=== PATIENT | male | born 2005 | race Hispanic/Latino ===

== ENCOUNTER 2025-05-23 11:07 | Emergency (ER) | payer BC, MEDICAID ==
[~2025-05-23] VITALS: Ht 180.3 cm; Wt 140.6 kg
[2025-05-23 11:41] VITALS: BP 125/70; PULSE 90; RESP 16; TEMP 97.9; O2SAT 99
[2025-05-23] MEDS ORDERED: AMOX875T2 PO (11:44)
--- NOTE | 2025-05-23 11:45 | ERN ---
ED Note History of Present Illness Stated Complaint: RT EAR PAIN Chief Complaint: Earache Time Seen by MD: 11:08 Time Seen by Midlevel: 11:10 Dictation: 19 y/o male c/o right ear pain, thinks there is was in his ear. No fever, nausea, vomiting or diarrhea. Allergies: Coded Allergies: No Known Allergies (Unverified Allergy, Unknown, 05/23/25) Past Medical History Past Medical History: No Pertinent History Surgical History: Appendectomy Review of System Dictation Constitutional: Negative for fever,chills, and weight loss Eyes: Negative for injury, pain,redness, and discharge ENT: Right ear pain Cardiovascular: Negative for chest pain, palpitations, and edema Respiratory: Negative for shortness of breath, cough, and wheezing, Abdomen/GI: Negative for abdominal pain, nausea, vomiting, diarrhea, and constipation Back: Negative for injury and pain : Negative for injury, bleeding and discharge MS/Extremity: Negative for injury and deformity Skin: Negative for rash, and discoloration Neuro: Negative for headache, weakness, numbness, tingling, and seizure Psych: Negative for suicide ideation, homicidal ideation, and hallucinations Review of Systems: was completed Initial Vital Sign VS Vital Signs Date Time Temp Pulse Resp B/P (MAP) Pulse Ox O2 Delivery O2 Flow Rate FiO2 05/23/25 11:08 97.9 102 16 131/74 97 Room Air 0 Physical Exam Dictation General: awake, alert, NAD Head/Face: Normocephalic, atraumatic Eyes: PERRL, EOMI, vision at baseline ENT: oral cavity clear, impaction to the right ear, TMs intact after patch Neck: Trachea midline, supple, no nuchal rigidity Cardiovascular: RRR, normal S1/S2, No MRGs, no JVD Respiratory: CTAB, no respiratory distress, No rales or wheezes Abdomen: Soft, non-tender, non-distended, normal bowel sounds, no guarding or rebound. Skin: Warm, dry, normal turgor, no rash MS/Extremity: Pulses equal, no cyanosis, neurovascular intact, FROM Neuro: COAx4, GCS 15, strength 5/5, CN 2-12 intact, normal cerebellar exam, normal gait, Psych: Normal behavior, mood, and affect normal ED Course ED Course Orders Procedure Category Date Status Time *Nursing CPOE 05/23/25 Transmitted Communication: 11:13 Vital Signs Date Time Temp Pulse Resp B/P (MAP) Pulse Ox O2 Delivery O2 Flow Rate FiO2 05/23/25 11:08 97.9 102 16 131/74 97 Room Air 0 Medical Decision Making MDM MDM:19 y/o male c/o right ear pain, thinks there is was in his ear. No fever, nausea, vomiting or diarrhea. Right ear disimpact with warm water by primary nurse. Large amount of wax n oted. Discharged with the antibiotics for right otitis media. Educated to avoid using Q-tips and to follow up with the his primary care provider. Patient verbalized understanding, answered all questions. Differential diagnosis: Making it, otitis externa, cerumen impaction Rationale: Tests considered and ordered secondary to shared decision making include: Previous outside records reviewed: Old ER visits. Risk of complication and/or morbidity or mortality of patient management: None Medications-Per medication reconciliation Need for hospitalization: Patient does not meet criteria for hospitalization. Need for emergency major/minor surgery: No There are no social concerns with this patient. Prescription drug management Prescriptions will include symptomatic care Patient's prior external medical records from other ER visits were reviewed by me as indicated. Prior testing and results from previous visits were reviewed. Prior tests were taken into account with medical decision making and resource utilization, independent historian/historians were used to obtain complete medical history. I independently interpreted the test that were performed, results were reviewed by me and considered findings on radiology if ordered. Medical management and examination interpretation discussions were had by me with other qualified healthcare professionals as indicated for the patient's care. DX & DISP Disposition: Discharge Departure Impression: Primary Impression: Cerumen impaction Additional Impression: Otitis media Condition: Stable Scripts Amoxicillin (Amoxicillin) 875 Mg Tablet 1 TAB PO BID for 5 Days, #20 TAB 0 Refills Prov: ANGY MCCRAY WORKDAY MANAGER 05/23/25 Additional Instructions: He had an antibiotics. Avoid using Q-tips to avoid impaction. Preliminary in 1-2 days. Referrals: JASE GARRETT MD (PCP) Time of Disposition: 11:43 I have reviewed the case, and I agree with, Diagnosis and Plan ANGY MCCRAY WORKDAY MANAGER May 23, 2025 11:44
== END 2025-05-23 11:47 | disposition home or self-care (01) ==
LOC: EDH 11:07
DX: H66.91 Otitis media, unspecified, right ear (principal); H61.21 Impacted cerumen, right ear; Z90.49 Acquired absence of other specified parts of digestive tract
CPT/HCPCS: 69209; 99283